=== PATIENT | male | born 1945 | race Caucasian/White ===

== ENCOUNTER → 2023-04-20 14:33 | Outpatient (CLI) | payer OTHER, SELFPAY ==
--- NOTE | 2023-04-20 | DI.ECHO.S_ITS ---
[place] [facility]---------+ [facility] +---------+ : : [address] : : : : [id number] : : : : Phone: [phone]+ Echocardiogram Report + + :Name: HUBERT LANDERS Study Date: 04/20/2023 Height: 64 in : :[facility] ReadingLocation: Weight: 161 lb : : Gender: Male BSA: 1.8 m2 : :: 1945 Age: 78 yrs BP: 124/72 mmHg: :Reason For Study: ATHEROSCLEROTIC HEART DISEASE : :Ordering Physician: CHINTAN, : :DENISE Performed By: Malina Waters : :Referring: DENIES WOODSON : + + Interpretation Summary Normal left ventricle size with ejection fraction 60-65%. Mild mitral regurgitation. Mild tricuspid regurgitation. Procedure: A two-dimensional transthoracic echocardiogram with color flow and Doppler was performed. The study quality was technically adequate. There is no prior echocardiogram noted for this patient. The patient was in sinus rhythm with heart rates between 69-75 bpm during the exam. Left Ventricle: The left ventricle is normal in size and wall thickness. The ejection fraction is estimated to be 60-65%. There are no focal wall motion abnormalities. Right Ventricle: The right ventricle is normal in size and function. Atria: The left atrial size is normal. Right atrial size is normal. There is no Doppler evidence for an interatrial shunt. Mitral Valve: The mitral valve is normal in structure and function. There is mild mitral regurgitation. Aortic Valve: The aortic valve is trileaflet. The aortic valve opens well. There is no aortic valve stenosis. There is trace aortic regurgitation. Tricuspid Valve: The tricuspid valve is normal in structure and function. There is mild tricuspid regurgitation. The right ventricular systolic pressure is estimated to be at least 27 mmHg based on an estimated right atrial pressure of 3 mm Hg. Pulmonic Valve: The pulmonic valve leaflets are thin and pliable; valve motion is normal. There is trace pulmonic regurgitation. Great Vessels: The aortic root is normal size. The dimensions of the ascending aorta are normal. The IVC is of normal diameter and collapses greater than 50% with a sniff. This suggests a low right atrial pressure of 3 mm Hg. Pericardium/ Pleura There is no pericardial effusion. There is no pleural effusion. MMode/2D Measurements & Calculations LVIDd: 4.5 cm LVOT diam: 2.0 cm LVIDs: 3.3 cm Ao root diam: 3.2 cm FS: 25.4 % asc Aorta Diam: 3.2 cm EPSS: 0.70 cm Ao Arch Diam (Prox Trans): 2.8 cm IVSd: 0.82 cm LVPWd: 0.70 cm LV hoffmann. diameter/BSA (cm/m^2): 2.5 LV sys. diameter/BSA (cm/m^2): 1.9 LA A2 area: 13.7 cm2 RA long axis: 4.5 cm LA A4 area: 12.6 cm2 RA area: 13.9 cm2 LA length (vol): 4.5 cm RA vol: 36.4 ml LA vol: 32.1 ml RA : 20.4 ml/m2 LA vol index: 18.0 ml/m2 IVC diam: 1.1 cm RVD1 (basal): 3.8 cm RVD2 (mid): 2.4 cm TAPSE: 1.6 cm Doppler Measurements & Calculations Ao V2 max: 119.6 cm/sec LVOT Max Baljit: 83.1 cm/sec Ao V2 mean: 86.1 cm/sec LV V1 max P.8 mmHg Ao max P.7 mmHg LV V1 VTI: 15.9 cm Ao mean P.2 mmHg BUBBA(I,D): 2.3 cm2 Ao V2 VTI: 21.3 cm BUBBA(V,D): 2.1 cm2 sev ratio: 0.75 BUBBA indexed to BSA (cm^2/m^2): 1.3 MV E max baljit: 56.6 cm/sec TR max baljit: 243.8 cm/sec MV A max baljit: 83.9 cm/sec TR max P.8 mmHg MV E/A: 0.67 PA V2 max: 102.5 cm/sec Med Peak E' Baljit: 5.3 cm/sec PA V2 mean: 68.2 cm/sec E/E' med: 10.7 PA mean P.2 mmHg Lat Peak E' Baljit: 8.9 cm/sec PA pr(Accel): 27.6 mmHg E/E' lat: 6.4 E/e' average: 8.5 MV dec time: 0.29 sec SV(LVOT): 49.1 ml Electronically signed by: Rosa Garcia on Reading Physician:04/20/2023 05:53 PM
== END ==
PROVIDERS: Referring Provider Orthopaedic Surgery; Visit Provider Orthopaedic Surgery
DX: I25.10 Atherosclerotic heart disease of native coronary artery without angina pectoris (principal); I34.0 Nonrheumatic mitral (valve) insufficiency; I07.1 Rheumatic tricuspid insufficiency
CPT/HCPCS: 93306

== ENCOUNTER → 2024-05-19 10:46 | Outpatient (CLI) | payer MEDICARE, SELFPAY ==
[2024-05-19 11:49] LABS: Add Manual Diff / Slide Review NO; Basophils Absolute Auto 100 /uL (0-100); Basophils Percent Auto 0.9 % (0-2); Eosinophils Absolute Auto 700 /uL (0-450); Eosinophils Percent Auto 6.3 % (2-4); Hematocrit 44.6 % (41-53); Hemoglobin 15.2 g/dL (13.5-17.5); Lymphocytes Absolute Auto 2600 /uL (1100-4500); Lymphocytes Percent Auto 24.5 % (25-40); Monocytes Absolute Auto 900 /uL (0-900); Monocytes Percent Auto 8.5 % (3-14); Neutrophils Absolute Auto 6400 /uL (1500-7000); Neutrophils Percent Auto 59.8 % (50-75); Platelet Count 240 X10^3/uL (150-400); Red Blood Cell Count 4.59 X10^6/uL (4.5-5.9); Red Cell Distribution Width 14.3 % (11.6-14.8); White Blood Cell Count 10.7 X10^3/uL (4.5-11.0)
[2024-05-23 20:10] LABS: Aspergillus fumigatus IgE <0.10 kU/L (Class 0)
[2024-05-25 04:37] LABS: Immunoglobulin E 560 IU/mL (6-495)
== END ==
PROVIDERS: PCP Registered Nurse; Referring Provider Internal Medicine; Visit Provider Internal Medicine
DX: J45.50 Severe persistent asthma, uncomplicated (principal)
CPT/HCPCS: 36415; 82785; 85025; 86003; 99214